=== PATIENT | female | born 1980 | race Caucasian/White ===

== ENCOUNTER 2020-10-05 10:23 | Outpatient (CLI) | payer MEDICARE, SELFPAY ==
--- NOTE | 2020-10-05 10:56 | XRR_ITS ---
PROCEDURE INFORMATION: Exam: XR Right Hand Exam date and time: 10/05/2020 10:57 AM Age: 40 years old Clinical indication: Right; Patient HX: C/O bilat joint /hand pain x 6 months; Additional info: Inflammatory arthritis TECHNIQUE: Imaging protocol: XR Right hand. Views: 3 or more views. COMPARISON: No relevant prior studies available. FINDINGS: Bones/joints: Negative for acute bony abnormality. Negative for radiographic evidence of inflammatory bone disease Soft tissues: Normal. XR/XR hand RT min 3V* [id number] IMPRESSION: No acute bone abnormality.
--- NOTE | 2020-10-05 10:56 | XRR_ITS ---
PROCEDURE INFORMATION: Exam: XR Left Hand Exam date and time: 10/05/2020 10:57 AM Age: 40 years old Clinical indication: Prior surgery; Surgery date: 6+ months; Surgery type: HX of left hand carpal tunnel surgery; Patient HX: C/O bilat joint pain/hand pain x 6 months; Additional info: Inflammatory arthritis TECHNIQUE: Imaging protocol: XR Left hand. Views: 3 or more views. COMPARISON: No relevant prior studies available. FINDINGS: Bones/joints: Negative for acute bony abnormality Soft tissues: Normal. XR/XR hand LT min 3V* [id number] IMPRESSION: No acute findings.
== END 2020-10-05 10:24 | disposition home or self-care (01) ==
LOC: RADWPI 10:31
PROVIDERS: PCP Family Medicine; Visit Provider Family Medicine
DX: M19.90 Unspecified osteoarthritis, unspecified site (principal); M79.642 Pain in left hand; M79.641 Pain in right hand
CPT/HCPCS: 73130

== ENCOUNTER → 2020-11-15 08:45 | Outpatient (BNVA) | payer MEDICARE, SELFPAY | PROVIDERS: PCP Family Medicine; Visit Provider Internal Medicine | DX: M79.641 Pain in right hand (principal); M25.50 Pain in unspecified joint; Z11.59 Encounter for screening for other viral diseases; R53.83 Other fatigue; E11.9 Type 2 diabetes mellitus without complications; F17.210 Nicotine dependence, cigarettes, uncomplicated; Z51.81 Encounter for therapeutic drug level monitoring; M79.643 Pain in unspecified hand; D86.9 Sarcoidosis, unspecified; M10.9 Gout, unspecified; Z72.89 Other problems related to lifestyle | CPT/HCPCS: 36415; 82306; 82310; 82533; 82550; 82728; 82784; 83516; 83540; 83735; 83970; 84100; 84550; 86140; 86704; 86803; 86812; 87340; 99204 ==

== ENCOUNTER 2020-11-15 10:12 | Outpatient (CLI) | payer MEDICARE, SELFPAY ==
[2020-11-15 11:35] LABS: Calcium 9.5 mg/dL (8.5-10.5)
[2020-11-15 11:56] LABS: Parathyroid Hormone 31.3 pg/mL (15-65)
[2020-11-15 12:27] LABS: 25 Hydroxy Vitamin D 24 ng/mL (30-100); C Reactive Protein 8.5 mg/L (0.0-4.9); Creatine Phosphokinase 39 U/L (26-192); Ferritin 89 ng/mL (15-150); Iron 81 ug/dL (37-145); Magnesium 1.8 mg/dL (1.7-2.3); Phosphorus 3.6 mg/dL (2.5-4.5); Uric Acid 4.4 mg/dL (2.4-5.7)
[2020-11-15 17:01] LABS: Hepatitis B Core AB, Total Non-Reactive (Nonreactive); Hepatitis B Surface Antigen Non-Reactive (Nonreactive); Hepatitis C Virus Antibody Non-Reactive (Nonreactive)
[2020-11-18 16:49] LABS: Gliadin Ab.IgA 4 U (<20); Gliadin Ab.IgG 2 U (<20)
[2020-11-18 23:54] LABS: Tissue Transglutaminase IgA Ab <1 U/mL; Tissue transglutaminase Ab.IgG 2 U/mL
[2020-11-20 00:54] LABS: Immunoglobulin A 106 mg/dL (47-310)
[2020-11-22 20:49] LABS: HLA-B27 POSITIVE (NEGATIVE)
== END 2020-11-15 10:13 | disposition home or self-care (01) ==
LOC: LAB 10:15
PROVIDERS: PCP Family Medicine; Visit Provider Internal Medicine
DX: Z51.81 Encounter for therapeutic drug level monitoring (principal); M79.643 Pain in unspecified hand; D86.9 Sarcoidosis, unspecified; M10.9 Gout, unspecified
CPT/HCPCS: 36415; 82306; 82310; 82533; 82550; 82728; 82784; 83516; 83540; 83735; 83970; 84100; 84550; 86140; 86704; 86803; 86812; 87340

== ENCOUNTER 2020-11-26 08:20 | Outpatient (CLI) | payer MEDICARE, SELFPAY ==
--- NOTE | 2020-11-26 08:31 | XR_ITS ---
WS: [id number] Exam: XR sacroiliac jts m 3V [id number] Date/Time of Exam: 11/26/2020 9:12 AM Reason For Exam: L40.9 - Psoriasis, unspecified Degenerative change and bony sclerosis of both SI joints noted. No fracture or dislocation. The SI j oints remain open. There appear to be large subcortical cysts in the bilateral sacral ala. Decompres laura laminectomy and interbody fusion at L5-S1. XR/XR sacroiliac jts m 3V [id number] IMPRESSION: 1. Degenerative change and bony sclerosis of both SI joints. Prominent subcorti yann cysts are noted in the bilateral sacral ala. The appearance is nonspecific but this could be seen with psoriatic arthritis. 2. No fracture. Decompression laminectomy and interbody fusion at L5-S1.
[2020-11-26 09:22] LABS: C Reactive Protein 8.4 mg/L (0.0-4.9)
[2020-11-26 11:01] LABS: Erythrocyte Sedimentation Rate 13 mm/hr (0-15)
[2020-11-26 13:20] LABS: Cortisol Random 11.97 ug/dL (2.47-19.5)
[2020-11-29 11:57] LABS: Cyclic Citrullinated Peptide <16 UNITS
[2020-11-29 14:33] LABS: COMPLEMENT COMPONENT C3C 152 mg/dL (83-193); COMPLEMENT COMPONENT C4C 34 mg/dL (15-57)
[2020-11-29 15:03] LABS: COMPLEMENT, TOTAL (CH50) >60 U/mL (31-60)
[2020-11-30 13:58] LABS: CENTROMERE B ANTIBODY <1.0 NEG AI (<1.0 NEG); JO-1 ANTIBODY <1.0 NEG AI (<1.0 NEG); RNP ANTIBODY <1.0 NEG AI (<1.0 NEG); SCL-70 ANTIBODY <1.0 NEG AI (<1.0 NEG); SJOGREN'S ANTIBODY (SS-A) <1.0 NEG AI (<1.0 NEG); SM ANTIBODY <1.0 NEG AI (<1.0 NEG); SS-B <1.0 NEG AI (<1.0 NEG)
[2020-11-30 14:28] LABS: ANA SCREEN, IFA NEGATIVE (NEGATIVE); THYROID PEROXIDASE ANTIBODIES 1 IU/mL (<9)
[2020-12-02 01:14] LABS: DNA AB (DS) CRITHIDIA,IFA NEGATIVE (NEGATIVE)
[2020-12-03 05:18] LABS: Adrenocorticotropic Hormone 15 pg/mL (6-50)
== END 2020-11-26 08:21 | disposition home or self-care (01) ==
PROVIDERS: PCP Family Medicine; Visit Provider Internal Medicine
DX: L40.9 Psoriasis, unspecified (principal); R79.82 Elevated C-reactive protein (CRP); D86.9 Sarcoidosis, unspecified
CPT/HCPCS: 72202; 82024; 82533; 85651; 86140

== ENCOUNTER → 2020-12-31 09:32 | Outpatient (BNVA) | payer MEDICARE, SELFPAY | PROVIDERS: PCP Family Medicine; Visit Provider Internal Medicine | DX: M25.50 Pain in unspecified joint; Z11.1 Encounter for screening for respiratory tuberculosis; R79.82 Elevated C-reactive protein (CRP); E11.9 Type 2 diabetes mellitus without complications; Z79.84 Long term (current) use of oral hypoglycemic drugs; F17.210 Nicotine dependence, cigarettes, uncomplicated; Z15.89 Genetic susceptibility to other disease | CPT/HCPCS: 99214 ==

== ENCOUNTER 2021-01-03 09:58 | Outpatient (CLI) | payer MEDICARE, SELFPAY ==
--- NOTE | 2021-01-03 10:08 | XRR_ITS ---
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 Views: 2 or 3 views. COMPARISON: MRI Cervical Spine w/o* [id number] 05/28/2014 10:01 AM FINDINGS: Bones/joints: Chronic degenerative disease with disc space narrowing and osteophyte formation especially from C5 through C7. No acute abnormality is seen. There is no malalignment. Soft tissues: Unremarkable. XR/XR cervical spine fl/ex [id number] IMPRESSION: Chronic degenerative disease. No acute abnormality or malalignment.
--- NOTE | 2021-01-03 10:08 | XRR_ITS ---
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 Views: 3 views. COMPARISON: MRI Thoracic Spine w/o* [id number] 05/28/2014 10:27 AM FINDINGS: Bones/joints: Normal. No acute fracture. Normal alignment. Soft tissues: Unremarkable. XR/XR thoracic spine 3V* [id number] IMPRESSION: No acute findings.
--- NOTE | 2021-01-03 10:08 | XRR_ITS ---
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 Views: 2 or 3 views. COMPARISON: MRI Lumbar Spine w/o [id number] 08/23/2016 7:27 AM FINDINGS: Bones/joints: The patient has undergone posterior fusion at L5-S1 with posterior pedicle screws and rods. There is grade 1-2 spondylolisthesis at L5-S1. There has been no significant change since previous study. There is old mild compression fracture of the L1 vertebral body. No acute abnormalities are seen. Soft tissues: Unremarkable. XR/XR lumbar spine 2-3V* [id number] IMPRESSION: 1. Stable appearance of the posterior fusion surgery and alignment at L5-S1. 2. No acute abnormality is seen.
[2021-01-05 12:53] LABS: Quantiferon Mitogen 8.13 IU/mL; Quantiferon Nil 0.02 IU/mL; Quantiferon TB Gold NEGATIVE (NEGATIVE)
== END 2021-01-03 09:59 | disposition home or self-care (01) ==
LOC: RAD 10:02
PROVIDERS: PCP Family Medicine; Visit Provider Internal Medicine
DX: Z15.89 Genetic susceptibility to other disease (principal); M32.9 Systemic lupus erythematosus, unspecified; Z11.1 Encounter for screening for respiratory tuberculosis
CPT/HCPCS: 36415; 72040; 72072; 72100; 86480

== ENCOUNTER 2021-03-09 07:51 | Outpatient (CLI) | payer MEDICARE, SELFPAY ==
--- NOTE | 2021-03-09 08:00 | MM_ITS ---
WS: [id number] BILATERAL DIGITAL SCREENING MAMMOGRAPHY WITH CAD CLINICAL INFORMATION: SCREENING HISTORY: Screening mammogram. No current complaints. COMPARISON: None. TECHNIQUE: Bilateral CC and MLO views. FINDINGS: Scattered fibroglandular densities bilaterally. Dense subareolar breast tissue bilaterally. No suspic ious focal mass, asymmetry, calcifications, or architectural distortion. No evidence of malignancy. B enign punctate calcifications. MM/[place] [id number] IMPRESSION: BI-RADS: 2-Benign FOLLOW UP: 1 Year Follow-up Recommend return to annual screening mammography.
== END 2021-03-09 07:52 | disposition home or self-care (01) ==
PROVIDERS: PCP Family Medicine; Visit Provider Nurse Practitioner Family
DX: Z12.31 Encounter for screening mammogram for malignant neoplasm of breast (principal)
CPT/HCPCS: 77067

== ENCOUNTER 2021-03-09 07:55 | Outpatient (CLI) | payer MEDICARE, SELFPAY ==
[2021-03-09 08:50] LABS: Basophils % 0.3 %; Eosinophils # 0.3 10^3/uL (0.0-0.8); Eosinophils % 2.6 %; Hematocrit 42.2 % (37.0-47.0); Hemoglobin 13.4 g/dL (11.5-15.3); Lymphocytes # 2.7 10^3/uL (0.8-4.8); Lymphocytes % 25.4 %; Mean Corpuscular HGB Conc 31.8 g/dL (30.0-36.0); Mean Corpuscular Hemoglobin 29.6 pg (28.0-34.0); Mean Corpuscular Volume 93.2 fL (81-99); Mean Platelet Volume 10.8 fL (7.4-10.4); Monocytes # 0.4 10^3/uL (0.2-0.9); Neutrophils # 7.12 10^3/uL (1.8-7.7); Neutrophils % 67.2 %; Nucleated Red Blood Cells % 0 %; Platelet Count 290 10^3/cmm (130-400); Red Blood Count 4.53 10^6/uL (4.1-5.3); Red Cell Distribution Width 14.5 % (12.1-15.1); White Blood Count 10.6 10^3/uL (4.0-10.0)
[2021-03-09 09:13] LABS: Alanine Aminotransferase 60 U/L (0-33); Albumin Level 4.3 g/dL (3.5-5.2); Alkaline Phosphatase 72 IU/L (35-105); Anion Gap 13.2 (5-19); Aspartate Amino Transferase 28 U/L (0-32); Blood Urea Nitrogen 11 mg/dL (6-20); C Reactive Protein 7.3 mg/L (0.0-4.9); Calcium 8.7 mg/dL (8.5-10.5); Carbon Dioxide 26 mmol/L (22-29); Chloride 100 mmol/L (98-107); Globulin 2.3 g/dL (1.3-4.6); Glomerular Filtration Rate 109.1 mL/min (90-130); Glucose 159 mg/dL (65-115); Osmolality Calculated 283 mOsm/kg (285-295); Potassium 4.2 mmol/L (3.5-5.1); Sodium 135 mmol/L (136-145); Total Bilirubin 0.3 mg/dL (0.15-1.2); Total Protein 6.6 g/dL (6.6-8.7)
[2021-03-09 09:51] LABS: Erythrocyte Sedimentation Rate 10 mm/hr (0-15)
[2021-03-09 11:32] LABS: Vitamin B12 1177 pg/mL (232-1245)
== END 2021-03-09 07:56 | disposition home or self-care (01) ==
PROVIDERS: PCP Family Medicine; Visit Provider Internal Medicine
DX: M25.50 Pain in unspecified joint (principal); R79.82 Elevated C-reactive protein (CRP); Z15.89 Genetic susceptibility to other disease; Z79.899 Other long term (current) drug therapy
CPT/HCPCS: 36415; 80053; 82607; 85025; 85651; 86140

== ENCOUNTER → 2021-03-15 12:59 | Outpatient (BNVA) | payer MEDICARE, SELFPAY | PROVIDERS: PCP Family Medicine; Visit Provider Internal Medicine | DX: Z15.89 Genetic susceptibility to other disease (principal); R79.82 Elevated C-reactive protein (CRP); M46.1 Sacroiliitis, not elsewhere classified; F17.210 Nicotine dependence, cigarettes, uncomplicated; Z82.61 Family history of arthritis | CPT/HCPCS: 99214 ==

== ENCOUNTER → 2021-04-28 10:10 | Outpatient (BNVA) | payer MEDICARE, SELFPAY | PROVIDERS: PCP Family Medicine; Visit Provider Internal Medicine | DX: M25.50 Pain in unspecified joint (principal); R79.82 Elevated C-reactive protein (CRP); Z79.899 Other long term (current) drug therapy | CPT/HCPCS: 36415; 80053; 85025; 85651; 86140 ==

== ENCOUNTER → 2021-05-03 12:54 | Outpatient (BNVA) | payer MEDICARE, SELFPAY | PROVIDERS: PCP Family Medicine; Visit Provider Internal Medicine | DX: Z15.89 Genetic susceptibility to other disease (principal); R79.82 Elevated C-reactive protein (CRP); M46.1 Sacroiliitis, not elsewhere classified; F17.210 Nicotine dependence, cigarettes, uncomplicated | CPT/HCPCS: 99214 ==

== ENCOUNTER → 2021-05-18 08:35 | Outpatient (BNVA) | payer MEDICARE, SELFPAY | PROVIDERS: PCP Family Medicine; Visit Provider Internal Medicine Rheumatology | DX: Z79.899 Other long term (current) drug therapy (principal); E55.9 Vitamin D deficiency, unspecified | CPT/HCPCS: 80053; 85025 ==

== ENCOUNTER → 2021-06-30 13:11 | Outpatient (BNVA) | payer MEDICARE, SELFPAY | PROVIDERS: PCP Family Medicine; Visit Provider Internal Medicine | DX: E55.9 Vitamin D deficiency, unspecified (principal); M25.50 Pain in unspecified joint; R79.82 Elevated C-reactive protein (CRP); Z15.89 Genetic susceptibility to other disease; Z79.899 Other long term (current) drug therapy | CPT/HCPCS: 36415; 80053; 85025; 85651; 86140 ==

== ENCOUNTER → 2021-08-11 10:21 | Outpatient (BNVA) | payer MEDICARE, SELFPAY | PROVIDERS: PCP Family Medicine; Visit Provider Internal Medicine | DX: M46.1 Sacroiliitis, not elsewhere classified (principal); Z15.89 Genetic susceptibility to other disease; R79.82 Elevated C-reactive protein (CRP); M96.1 Postlaminectomy syndrome, not elsewhere classified; F17.210 Nicotine dependence, cigarettes, uncomplicated | CPT/HCPCS: 99214 ==

== ENCOUNTER → 2021-08-22 08:31 | Outpatient (BNVA) | payer MEDICARE, SELFPAY | PROVIDERS: PCP Family Medicine; Referring Provider Internal Medicine; Visit Provider Anesthesiology Pain Medicine | DX: G89.29 Other chronic pain (principal); M54.50 Low back pain, unspecified; M96.1 Postlaminectomy syndrome, not elsewhere classified; M46.1 Sacroiliitis, not elsewhere classified; F17.210 Nicotine dependence, cigarettes, uncomplicated; Z15.89 Genetic susceptibility to other disease; Z79.891 Long term (current) use of opiate analgesic | CPT/HCPCS: 99204 ==

== ENCOUNTER → 2021-09-06 13:52 | Outpatient (BNVA) | payer MEDICARE, SELFPAY | PROVIDERS: PCP Family Medicine; Visit Provider Anesthesiology Pain Medicine | DX: M53.3 Sacrococcygeal disorders, not elsewhere classified (principal); M54.9 Dorsalgia, unspecified; Z91.041 Radiographic dye allergy status | CPT/HCPCS: 77002; G0260; J1040; J1200; J3490 ==

== ENCOUNTER 2021-09-09 09:01 | Outpatient (CLI) | payer MEDICARE, SELFPAY ==
[2021-09-09 09:32] LABS: Basophils % 0.3 %; Eosinophils # 0.1 10^3/uL (0.0-0.8); Eosinophils % 1.1 %; Lymphocytes # 3.4 10^3/uL (0.8-4.8); Lymphocytes % 28.4 %; Mean Corpuscular HGB Conc 32.6 g/dL (30.0-36.0); Mean Corpuscular Hemoglobin 30.6 pg (28.0-34.0); Mean Corpuscular Volume 94.1 fl (81-99); Mean Platelet Volume 10.1 fL (7.4-10.4); Monocytes # 0.7 10^3/uL (0.2-0.9); Monocytes % 5.9 %; Neutrophils # 7.69 10^3/uL (1.8-7.7); Neutrophils % 63.7 %; Nucleated Red Blood Cells % 0 %; Platelet Count 350 10^3/cmm (130-400); Red Blood Count 4.57 10^6/uL (4.1-5.3); Red Cell Distribution Width 14.6 % (12.1-15.1); White Blood Count 12.1 10^3/uL (4.0-10.0)
[2021-09-09 09:58] LABS: Alanine Aminotransferase 24 U/L (0-33); Albumin Level 4.4 g/dL (3.5-5.2); Alkaline Phosphatase 75 IU/L (35-105); Anion Gap 17.2 (5-19); Aspartate Amino Transferase 14 U/L (0-32); Blood Urea Nitrogen 8 mg/dL (6-20); C Reactive Protein 4.3 mg/L (0.0-4.9); Calcium 9.2 mg/dL (8.5-10.5); Carbon Dioxide 25 mmol/L (22-29); Chloride 99 mmol/L (98-107); Globulin 2.8 g/dL (1.3-4.6); Glomerular Filtration Rate 109.1 mL/min (90-130); Glucose 116 mg/dL (65-115); Osmolality Calculated 283 mOsm/kg (285-295); Potassium 4.2 mmol/L (3.5-5.1); Sodium 137 mmol/L (136-145); Total Bilirubin 0.2 mg/dL (0.15-1.2); Total Protein 7.2 g/dL (6.6-8.7)
[2021-09-12 11:29] LABS: Erythrocyte Sedimentation Rate 2 mm/hr (0-15)
== END 2021-09-09 09:02 | disposition home or self-care (01) ==
PROVIDERS: PCP Family Medicine; Visit Provider Internal Medicine
DX: M25.50 Pain in unspecified joint (principal); M46.1 Sacroiliitis, not elsewhere classified; Z15.89 Genetic susceptibility to other disease; Z79.899 Other long term (current) drug therapy
CPT/HCPCS: 36415; 80053; 85025; 85651; 86140

== ENCOUNTER → 2021-10-03 09:47 | Outpatient (BNVA) | payer MEDICARE, SELFPAY | PROVIDERS: PCP Family Medicine; Visit Provider Anesthesiology Pain Medicine | DX: G89.29 Other chronic pain (principal); M54.16 Radiculopathy, lumbar region; M43.16 Spondylolisthesis, lumbar region; M43.26 Fusion of spine, lumbar region; M96.1 Postlaminectomy syndrome, not elsewhere classified; M46.1 Sacroiliitis, not elsewhere classified; Z15.89 Genetic susceptibility to other disease; M79.605 Pain in left leg; F17.200 Nicotine dependence, unspecified, uncomplicated; Z79.891 Long term (current) use of opiate analgesic | CPT/HCPCS: 99214 ==

== ENCOUNTER → 2021-10-31 09:36 | Outpatient (BNVA) | payer MEDICARE, SELFPAY | PROVIDERS: PCP Family Medicine; Visit Provider Anesthesiology Pain Medicine | DX: G89.29 Other chronic pain (principal); M54.16 Radiculopathy, lumbar region; M43.16 Spondylolisthesis, lumbar region; M46.1 Sacroiliitis, not elsewhere classified; M96.1 Postlaminectomy syndrome, not elsewhere classified; Z15.89 Genetic susceptibility to other disease; F17.210 Nicotine dependence, cigarettes, uncomplicated; Z79.891 Long term (current) use of opiate analgesic | CPT/HCPCS: 99213 ==

== ENCOUNTER → 2021-11-07 13:52 | Outpatient (BNVA) | payer MEDICARE, SELFPAY | PROVIDERS: PCP Family Medicine; Visit Provider Internal Medicine | DX: M46.1 Sacroiliitis, not elsewhere classified (principal); Z15.89 Genetic susceptibility to other disease; M25.50 Pain in unspecified joint; Z79.899 Other long term (current) drug therapy; F17.210 Nicotine dependence, cigarettes, uncomplicated | CPT/HCPCS: 99214 ==

== ENCOUNTER 2022-01-27 12:34 | Outpatient (CLI) | payer MEDICARE, SELFPAY ==
[2022-01-27 12:58] LABS: Basophils % 0.4 %; Eosinophils # 0.2 10^3/uL (0.0-0.8); Eosinophils % 1.9 %; Hematocrit 41.9 % (37.0-47.0); Hemoglobin 13.7 g/dL (11.5-15.3); Lymphocytes # 3.5 10^3/uL (0.8-4.8); Lymphocytes % 32.1 %; Mean Corpuscular HGB Conc 32.7 g/dL (30.0-36.0); Mean Corpuscular Hemoglobin 31.4 pg (28.0-34.0); Mean Corpuscular Volume 96.1 fl (81-99); Mean Platelet Volume 10.6 fL (7.4-10.4); Monocytes # 0.4 10^3/uL (0.2-0.9); Monocytes % 3.6 %; Neutrophils # 6.63 10^3/uL (1.8-7.7); Neutrophils % 61.4 %; Nucleated Red Blood Cells % 0 %; Platelet Count 324 10^3/cmm (130-400); Red Blood Count 4.36 10^6/uL (4.1-5.3); Red Cell Distribution Width 14.6 % (12.1-15.1); White Blood Count 10.8 10^3/uL (4.0-10.0)
[2022-01-27 13:02] LABS: Erythrocyte Sedimentation Rate 15 mm/hr (0-15)
[2022-01-27 13:17] LABS: Alanine Aminotransferase 69 U/L (0-33); Albumin Level 4.9 g/dL (3.5-5.2); Alkaline Phosphatase 97 IU/L (35-105); Anion Gap 18.1 (5-19); Blood Urea Nitrogen 8 mg/dL (6-20); C Reactive Protein 11.4 mg/L (0.0-4.9); Calcium 9.8 mg/dL (8.5-10.5); Carbon Dioxide 25 mmol/L (22-29); Chloride 102 mmol/L (98-107); Globulin 2.4 g/dL (1.3-4.6); Glomerular Filtration Rate 78.3 mL/min (90-130); Glucose 109 mg/dL (65-115); Osmolality Calculated 291 mOsm/kg (285-295); Potassium 4.1 mmol/L (3.5-5.1); Sodium 141 mmol/L (136-145); Total Bilirubin 0.3 mg/dL (0.15-1.2); Total Protein 7.3 g/dL (6.6-8.7)
[2022-01-27 13:26] LABS: Aspartate Amino Transferase 5 U/L (0-32)
== END 2022-01-27 12:35 | disposition home or self-care (01) ==
PROVIDERS: PCP Family Medicine; Visit Provider Internal Medicine
DX: M25.50 Pain in unspecified joint (principal); M43.10 Spondylolisthesis, site unspecified; R79.82 Elevated C-reactive protein (CRP); Z15.89 Genetic susceptibility to other disease; Z79.899 Other long term (current) drug therapy
CPT/HCPCS: 80053; 85025; 85651; 86140

== ENCOUNTER → 2022-01-30 08:38 | Outpatient (BNVA) | payer MEDICARE, SELFPAY | PROVIDERS: PCP Family Medicine; Visit Provider Anesthesiology Pain Medicine | DX: G89.29 Other chronic pain (principal); M54.16 Radiculopathy, lumbar region; M96.1 Postlaminectomy syndrome, not elsewhere classified; M46.1 Sacroiliitis, not elsewhere classified; M43.10 Spondylolisthesis, site unspecified; Z15.89 Genetic susceptibility to other disease; F17.210 Nicotine dependence, cigarettes, uncomplicated; Z79.891 Long term (current) use of opiate analgesic | CPT/HCPCS: 99213 ==

== ENCOUNTER 2022-02-09 12:28 | Outpatient (CLI) | payer MEDICARE, SELFPAY ==
--- NOTE | 2022-02-09 12:33 | XR_ITS ---
WS: [id number] DEXA (DUAL ENERGY X-RAY ABSORPTIOMETRY) Bone mineral density was performed using a [employer] machine. HISTORY: POSTMENOPAUSAL COMPARISON: None available. Lumbar spine BMD (L1-L4): 1.157 g/cm2 T score: -0.2 Z score: -1.4 Total hip BMD: Left: 1.213 g/cm2. T score: 1.6 Z score: 1.1 Right: 1.129 g/cm2. T score: 1.0 Z score: 0.4 10 year probability of a major osteoporotic fracture is 3%. XR/XR DEXA axial skeleton* [id number] IMPRESSION: NORMAL BONE MINERAL DENSITY based upon the WHO classification for females.
== END 2022-02-09 12:29 | disposition home or self-care (01) ==
LOC: RAD 12:29
PROVIDERS: PCP Family Medicine; Visit Provider Nurse Practitioner Family
DX: Z78.0 Asymptomatic menopausal state (principal)
CPT/HCPCS: 77080

== ENCOUNTER → 2022-02-23 11:09 | Outpatient (BNVA) | payer MEDICARE, SELFPAY | PROVIDERS: PCP Family Medicine; Visit Provider Internal Medicine | DX: M46.1 Sacroiliitis, not elsewhere classified (principal); Z15.89 Genetic susceptibility to other disease; R79.82 Elevated C-reactive protein (CRP); R74.01 Elevation of levels of liver transaminase levels; Z79.899 Other long term (current) drug therapy; F17.210 Nicotine dependence, cigarettes, uncomplicated | CPT/HCPCS: 99214 ==

== ENCOUNTER 2022-02-28 07:57 | Outpatient (CLI) | payer MEDICARE, SELFPAY ==
[2022-02-28 08:45] LABS: Alanine Aminotransferase 47 U/L (0-33); Albumin Level 4.4 g/dL (3.5-5.2); Alkaline Phosphatase 87 IU/L (35-105); Anion Gap 14.5 (5-19); Aspartate Amino Transferase 28 U/L (0-32); Blood Urea Nitrogen 11 mg/dL (6-20); Calcium 8.5 mg/dL (8.5-10.5); Carbon Dioxide 24 mmol/L (22-29); Chloride 103 mmol/L (98-107); Chol HDL Ratio 3.94 mg/dL (0.0-4.40); Cholesterol 122 mg/dL (0-200); Globulin 2.4 g/dL (1.3-4.6); Glomerular Filtration Rate 77.9 mL/min (90-130); Glucose 150 mg/dL (65-115); HDL Cholesterol 31 mg/dL (60-100); LDL Cholesterol Calculated 56 mg/dL (50-129); LDL HDL Ratio 1.81 RATIO (0.00-3.22); Osmolality Calculated 286 mOsm/kg (285-295); Potassium 4.5 mmol/L (3.5-5.1); Sodium 137 mmol/L (136-145); Thyroid Stimulating Hormone 2.31 uIU/mL (0.27-4.20); Total Bilirubin 0.3 mg/dL (0.15-1.2); Total Protein 6.8 g/dL (6.6-8.7); Triglycerides 176 mg/dL (0-150)
== END 2022-02-28 07:58 | disposition home or self-care (01) ==
PROVIDERS: PCP Family Medicine; Visit Provider Internal Medicine
DX: R74.01 Elevation of levels of liver transaminase levels (principal)
CPT/HCPCS: 36415; 80053; 80061; 84443

== ENCOUNTER 2022-03-24 08:57 | Outpatient (CLI) | payer MEDICARE, SELFPAY ==
--- NOTE | 2022-03-24 09:03 | MM_ITS ---
WS: [id number] VIEWS: MLO and CC views both breasts. 3D digital tomosynthesis is also included in this exam. Comparison made with prior exam of 03/09/2021. Findings: There was no sign of mass, architectural distortion or suspicious calcification in either breast. Sc attered fibroglandular densities MM/[place] [id number] Impression: BI-RADS: 2-Benign FOLLOW-UP: 1 Year Follow-up This mammogram was also analyzed by the Computer Aided Detection System [employer].
== END 2022-03-24 08:58 | disposition home or self-care (01) ==
LOC: RAD 08:58
PROVIDERS: PCP Family Medicine; Visit Provider Nurse Practitioner Family
DX: Z12.31 Encounter for screening mammogram for malignant neoplasm of breast (principal)
CPT/HCPCS: 77063; 77067

== ENCOUNTER → 2022-03-29 10:36 | Outpatient (BNVA) | payer MEDICARE, SELFPAY | PROVIDERS: PCP Family Medicine; Referring Provider Nurse Practitioner Family; Visit Provider Podiatrist Foot & Ankle Surgery | DX: M79.671 Pain in right foot (principal); M79.672 Pain in left foot; Z15.89 Genetic susceptibility to other disease; E11.42 Type 2 diabetes mellitus with diabetic polyneuropathy | CPT/HCPCS: 99203; 99204 ==

== ENCOUNTER → 2022-05-04 13:40 | Outpatient (BNVA) | payer MEDICARE, SELFPAY | PROVIDERS: PCP Family Medicine; Visit Provider Podiatrist Foot & Ankle Surgery | DX: L85.1 Acquired keratosis [keratoderma] palmaris et plantaris (principal); M79.671 Pain in right foot; M79.672 Pain in left foot; Z15.89 Genetic susceptibility to other disease; E11.42 Type 2 diabetes mellitus with diabetic polyneuropathy; Z79.84 Long term (current) use of oral hypoglycemic drugs | CPT/HCPCS: 17110 ==

== ENCOUNTER 2022-05-05 09:11 | Outpatient (CLI) | payer MEDICARE, SELFPAY ==
[2022-05-05 09:37] LABS: Basophils % 0.3 %; Eosinophils # 0.2 10^3/uL (0.0-0.8); Eosinophils % 1.6 %; Hematocrit 41.9 % (37.0-47.0); Lymphocytes # 2.6 10^3/uL (0.8-4.8); Lymphocytes % 25.4 %; Mean Corpuscular HGB Conc 33.4 g/dL (30.0-36.0); Mean Corpuscular Hemoglobin 31.4 pg (28.0-34.0); Mean Corpuscular Volume 93.9 fl (81-99); Mean Platelet Volume 10.9 fL (7.4-10.4); Monocytes # 0.5 10^3/uL (0.2-0.9); Monocytes % 4.6 %; Neutrophils # 7.01 10^3/uL (1.8-7.7); Neutrophils % 67.8 %; Nucleated Red Blood Cells % 0 %; Platelet Count 285 10^3/cmm (130-400); Red Blood Count 4.46 10^6/uL (4.1-5.3); Red Cell Distribution Width 14.6 % (12.1-15.1); White Blood Count 10.4 10^3/uL (4.0-10.0)
[2022-05-05 09:41] LABS: Erythrocyte Sedimentation Rate 4 mm/hr (0-15)
[2022-05-05 09:55] LABS: Alanine Aminotransferase 38 U/L (0-33); Albumin Level 4.6 g/dL (3.5-5.2); Alkaline Phosphatase 77 IU/L (35-105); Anion Gap 14.3 (5-19); Aspartate Amino Transferase 23 U/L (0-32); Blood Urea Nitrogen 7 mg/dL (6-20); C Reactive Protein 5.3 mg/L (0.0-4.9); Calcium 9.4 mg/dL (8.5-10.5); Carbon Dioxide 25 mmol/L (22-29); Chloride 102 mmol/L (98-107); Globulin 2.4 g/dL (1.3-4.6); Glomerular Filtration Rate 90.9 mL/min (90-130); Glucose 135 mg/dL (65-115); Osmolality Calculated 284 mOsm/kg (285-295); Potassium 4.3 mmol/L (3.5-5.1); Sodium 137 mmol/L (136-145); Total Bilirubin 0.3 mg/dL (0.15-1.2)
== END 2022-05-05 09:12 | disposition home or self-care (01) ==
LOC: LAB 09:14
PROVIDERS: PCP Family Medicine; Visit Provider Internal Medicine
DX: M46.1 Sacroiliitis, not elsewhere classified (principal); Z15.89 Genetic susceptibility to other disease; M43.10 Spondylolisthesis, site unspecified; Z79.899 Other long term (current) drug therapy
CPT/HCPCS: 80053; 85025; 85651; 86140

== ENCOUNTER → 2022-05-09 09:21 | Outpatient (BNVA) | payer MEDICARE, SELFPAY | PROVIDERS: PCP Family Medicine; Visit Provider Anesthesiology Pain Medicine | DX: G89.29 Other chronic pain (principal); M96.1 Postlaminectomy syndrome, not elsewhere classified; M46.1 Sacroiliitis, not elsewhere classified; M54.16 Radiculopathy, lumbar region; M43.17 Spondylolisthesis, lumbosacral region; F17.210 Nicotine dependence, cigarettes, uncomplicated; Z15.89 Genetic susceptibility to other disease; Z79.891 Long term (current) use of opiate analgesic | CPT/HCPCS: 99214 ==

== ENCOUNTER → 2022-05-16 11:33 | Outpatient (BNVA) | payer MEDICARE, SELFPAY | PROVIDERS: PCP Family Medicine; Visit Provider Internal Medicine | DX: M46.1 Sacroiliitis, not elsewhere classified (principal); M54.16 Radiculopathy, lumbar region; R74.01 Elevation of levels of liver transaminase levels | CPT/HCPCS: 99214 ==

== ENCOUNTER → 2022-05-30 10:10 | Outpatient (BNVA) | payer MEDICARE, SELFPAY | PROVIDERS: PCP Family Medicine; Visit Provider Podiatrist Foot & Ankle Surgery | DX: M79.671 Pain in right foot (principal); M79.672 Pain in left foot; Z15.89 Genetic susceptibility to other disease; E11.42 Type 2 diabetes mellitus with diabetic polyneuropathy; L85.1 Acquired keratosis [keratoderma] palmaris et plantaris; R23.4 Changes in skin texture | CPT/HCPCS: 17110; 99213 ==

== ENCOUNTER → 2022-06-27 10:17 | Outpatient (BNVA) | payer MEDICARE, SELFPAY | PROVIDERS: PCP Family Medicine; Visit Provider Podiatrist Foot & Ankle Surgery | DX: L84 Corns and callosities (principal); Z15.89 Genetic susceptibility to other disease; E11.42 Type 2 diabetes mellitus with diabetic polyneuropathy; L85.1 Acquired keratosis [keratoderma] palmaris et plantaris; R23.4 Changes in skin texture; Z79.84 Long term (current) use of oral hypoglycemic drugs | CPT/HCPCS: 17110 ==

== ENCOUNTER → 2022-08-14 10:45 | Outpatient (BNVA) | payer MEDICARE, SELFPAY | PROVIDERS: PCP Family Medicine; Referring Provider Family Medicine; Visit Provider Specialist | DX: G56.02 Carpal tunnel syndrome, left upper limb (principal) | CPT/HCPCS: 95908; 95909 ==

== ENCOUNTER → 2022-08-14 14:05 | Outpatient (BNVA) | payer MEDICARE, SELFPAY | PROVIDERS: PCP Family Medicine; Visit Provider Podiatrist Foot & Ankle Surgery | DX: B07.0 Plantar wart (principal) | CPT/HCPCS: 17110 ==

== ENCOUNTER → 2022-08-21 08:01 | Outpatient (BNVA) | payer MEDICARE, SELFPAY | PROVIDERS: PCP Family Medicine; Referring Provider Family Medicine; Visit Provider Specialist | DX: G56.02 Carpal tunnel syndrome, left upper limb (principal) | CPT/HCPCS: 73110; 99204 ==

== ENCOUNTER → 2022-08-29 10:40 | Outpatient (BNVA) | payer MEDICARE, SELFPAY | PROVIDERS: PCP Family Medicine; Visit Provider Internal Medicine | DX: Z15.89 Genetic susceptibility to other disease (principal); M79.643 Pain in unspecified hand; R74.01 Elevation of levels of liver transaminase levels; R79.82 Elevated C-reactive protein (CRP); M96.1 Postlaminectomy syndrome, not elsewhere classified; M25.529 Pain in unspecified elbow | CPT/HCPCS: 36415; 80053; 85025; 85651; 86140; 99214 ==

== ENCOUNTER → 2022-09-25 07:56 | Outpatient (BNVA) | payer MEDICARE, SELFPAY | PROVIDERS: PCP Family Medicine; Visit Provider Specialist | DX: G56.02 Carpal tunnel syndrome, left upper limb (principal) | CPT/HCPCS: 99214 ==

== ENCOUNTER → 2022-10-09 15:16 | Outpatient (BNVA) | payer MEDICARE, SELFPAY | PROVIDERS: PCP Family Medicine; Visit Provider Podiatrist Foot & Ankle Surgery | DX: B07.0 Plantar wart (principal) | CPT/HCPCS: 17110 ==

== ENCOUNTER 2022-10-13 05:53 | Day surgery (SDC) | payer MEDICARE, SELFPAY ==
[2022-10-13 06:16] VITALS: BP 146/99; PULSE 103; RESP 18; TEMP 36.4; O2SAT 100
--- NOTE | 2022-10-13 06:30 | ANES.PREANE2 ---
Pre-Anesthetic Assessment Height/Weight: Height 1.57 m Weight 111.13 kg Temp Pulse Resp BP Pulse Ox O2 Del Method 97.5 F L 103 H 18 146/99 100 10/13/22 06:16 10/13/22 06:16 10/13/22 06:16 10/13/22 06:16 10/13/22 06:16 10/13/22 06:16 Preop Diagnosis: Left carpal tunnel syndrome Operation Date: 10/13/22 07:00 Proposed Procedures p LEFT CARPAL TUNNEL RELEASE 23035 G56.0(Left) - Yi Montanez MD Familial anesthetic complications: None Was Beta Rosey taken within 24 hours: N/A Was Clonidine taken within 24 hours: N/A Last intake: Intake Last Liquid Date 10/12/22 Last Liquid Time 22:00 Last Solid Date 10/12/22 Last Solid Time 21:30 Social No alcohol and No tobacco Exam alert, oriented x 3, clear to auscultation bilaterally and regular rate & rhythm Airway Mallampati: Class III Dentition: full GI Gastroesophageal Reflux Disease Metabolic Diabetes Mellitus and Hyperlipidemia Anesthetic Plan ASA status: 3 Anesthesia: MAC and Regional (specify below) (donnell block) Risk of > 500 ml blood loss (7ml/kg in children): No Medications/Allergies Home Medications Medication Instructions Recorded Confirmed Last Taken Type cetirizine 10 mg tablet 10 mg PO DAILY 11/15/20 10/12/22 10/12/22 History cyclobenzaprine 10 mg tablet 10 mg PO TID 11/15/20 10/12/22 10/11/22 History metformin 500 mg tablet 500 mg PO BID 11/15/20 10/12/22 10/12/22 History omeprazole 20 mg capsule,delayed 20 mg PO BID 11/15/20 10/12/22 10/12/22 History release venlafaxine 150 mg tablet,extended 150 mg PO DAILY 11/15/20 10/12/22 10/12/22 History release 24 hr rosuvastatin 5 mg tablet (Crestor) 5 mg PO DAILY 05/03/21 10/12/22 10/12/22 History hydrocodone 5 mg-acetaminophen 325 1 tab PO BID PRN Pain 08/22/21 10/12/22 Unknown History mg tablet gabapentin 300 mg capsule See Rx Instructions PO TID pain 05/16/22 10/12/22 10/12/22 Rx #120 caps diclofenac sodium 50 mg 50 mg PO BID #60 tabs 05/25/22 10/12/22 10/07/22 Rx tablet,delayed release cholecalciferol (vitamin D3) 25 25 mcg PO DAILY #60 caps 08/07/22 10/12/22 10/12/22 Rx mcg (1,000 unit) capsule folic acid 1 mg tablet 2 mg PO DAILY #180 tabs 08/21/22 10/12/22 10/12/22 Rx methotrexate sodium 2.5 mg tablet 15 mg PO .qweek #30 tabs 09/13/22 10/12/22 10/10/22 Rx Allergies Allergy/AdvReac Type Severity Reaction Status Date / Time Sulfa (Sulfonamide Allergy Severe hives Verified 10/13/22 06:14 Antibiotics) morphine Allergy Intermediate vomiting Verified 10/13/22 06:14 tramadol Allergy Intermediate unable to Verified 10/13/22 06:14 function celecoxib [From Celebrex] Allergy Mild hives Verified 10/13/22 06:14 Iodinated Contrast Media Allergy shortness Verified 10/13/22 06:14 of breath after MRI meloxicam AdvReac ADR-Abdominal Verified 10/13/22 06:14 Pain PFSH Anesthesia Medical History Degenerative disc disease Family History Mother CAD (coronary artery disease) Hypertension Multiple sclerosis Social History Smoking and tobacco status: current every day smoker cigarettes Smoking risk assessment/counseling performed?: Yes Alcohol intake: current Alcohol intake frequency: holidays/special occasions only Alcohol type: wine Lives independently: Yes Household members: spouse and children Marital status: Number of children: 2 History of recent travel: No Female Reproductive History Date of last menstrual period: 10/29/18 Data Anesthesia Cardiac Studies: No Data to Display
[2022-10-13 06:31] LABS: Glucose Point of Care 139 mg/dL (70-110)
[2022-10-13] MEDS: acetaminophen 1,000 MG/100 ML PIGGYBACK 400 MG IV (06:38)
[2022-10-13] MEDS: sodium chloride 0.9% 1,000 ML 30 ML IV (06:45)
--- NOTE | 2022-10-13 07:07 | W.PM.OPSUD ---
Surgery/Procedure H&P Update DATE OF PROCEDURE: October 13, 2022 DATE H&P PERFORMED: 09/25/22 H&P UPDATE INFORMATION: I have reviewed H&P completed within last 30 days, I have examined patient prior to procedure, No changes to prior documentation and H&P is in [facility] EMR on date indicated PREOP DIAGNOSIS: Left carpal tunnel syndrome PLANNED PROCEDURE: Operation Date: 10/13/22 07:00 Proposed Procedures p LEFT CARPAL TUNNEL RELEASE 61370 G56.0(Left) - Yi Montanez MD Related Problem List Diagnoses (1) Left carpal tunnel syndrome:
[2022-10-13] MEDS: ceFAZolin 2,000 MG in sodium chloride 0.9% (plus) 50 ML 100 MG IV (07:12)
[2022-10-13 08:17] VITALS: BP 202/87; PULSE 86; RESP 20; TEMP 36.2; O2SAT 94
[2022-10-13 08:22] VITALS: BP 107/74; PULSE 79; RESP 18; O2SAT 95
[2022-10-13 08:25] VITALS: BP 105/66; PULSE 75; RESP 18; O2SAT 95
--- NOTE | 2022-10-13 08:26 | P.OP_ITS ---
Operative Report Date of procedure: October 13, 2022 Pre-op diagnosis: Left carpal tunnel syndrome Post-op diagnosis: Left carpal tunnel syndrome Post-op findings: Severe compression across the carpal canal with significant compression and hourglass deformity to the median nerve Procedure done: Left carpal tunnel syndrome Specimens removed/disposition: None Surgeon: Yi Montanez Shuttlecock Feather Trimmer: None Anesthesia: MAC (With [place] block, ASA 3) Estimated blood loss (mL): 2 Tourniquet time (min): 46 (At 300 mmHg) IV fluids (mL): 200 Urine output (mL): 0 Complications: None Findings: Severe compression across the median nerve with discoloration and hourglass shape. Condition: stable Disposition: PACU (Then to same-day surgery for discharge home.) Brief History: This is a 42 year old female patient here today for carpal tunnel release to address her left wrist pain and associated carpal tunnel symptoms. She states her pain has been on going for years. She states her pain is a burning, numbness and tingling sensation. She explains her pain radiates from her elbow into her wrist, palm and fingers and involves primarily the thumb index and long fingers. She states she has numbness of all her digits of her left hand. She states she had a previous right carpal [place] [address] Al. She explains she has tried Ibuprofen, splinting and injections with no relief. She states her pain is worse at night and keeps her from sleeping. She reports difficulty holding coffee cups due to the pain and numbness. While in the office, risks and complications were discussed. Consents were signed, and questions were answered. Procedure: The patient was brought to the operating theater. The patient had a Saqib block with MAC, ASA 3. The tourniquet was elevated to 300 mmHg for a total tourniquet time of 46 minutes. The patient was also given Ancef 2 g preoperatively. The arm was then prepped and draped with DuraPrep in usual fashion with the arm draped free. A surgical pause was performed. At the time, the surgical pause, we confirmed the site and side of surgery. We also confirmed the patient's identity, appropriate and timely administration of preoperative antibiotics and preoperative surgical markings. An incision was then made along the thenar crease. The incision crossed the wrist joint in a curvilinear fashion. Dissection continued through skin and soft tissues using a scalpel. The palmaris longus was identified along with the transverse carpal ligament. Each of these was released carefully to avoid injury to the median nerve.? The transverse carpal ligament was significantly thickened.? We were able to dissect gently into the carpal canal which was noted to be quite tight with significant compression across the median nerve. The nerv e was visualized and was an hourglass shape with purplish discoloration. The canal was subsequently palpated to assure there was no bony encroachment upon the canal. There was a quite thickened fibrous tissue within the canal, and this was opened longitudinally as well. The canal was then palpated distally and proximally to assure that my small finger was passed easily without impingement. Finding this to be so, attention was directed to closure. The wound was irrigated with ropivacaine plain. It was then closed with 2-0 nylon in an interrupted mattress fashion. Sterile dressing was then placed consisting of Dermabond, OpSite, fluffed fluffs, sterile soft roll, and an Jose L wrap. The tourniquet was released after 46 minutes. There were no complications. There were no specimens. The procedure was well tolerated. Plan is the patient will be discharged home. Related Problem List Diagnoses (1) Left carpal tunnel syndrome:
[2022-10-13 08:30] VITALS: BP 117/78; PULSE 74; RESP 18; TEMP 36.3; O2SAT 95
[2022-10-13 08:33] VITALS: BP 106/77; PULSE 82; RESP 15; TEMP 36.6; O2SAT 97
--- NOTE | 2022-10-13 14:41 | ANE.PACU2 ---
Inpatient post-anesthesia follow up: Airway intact: Yes Vital signs: Temperature 97.8 F Pulse Rate 82 Respiratory Rate 15 Blood Pressure 106/77 Pulse Oximetry 97 Oxygen Delivery Me thod Room Air Oxygen Flow Rate Fraction of Inspir ed Oxygen Hydration adequate: Yes Nausea and vomiting: No Pain level: 1 Mental status: Baseline
== END 2022-10-13 09:00 | disposition home or self-care (01) ==
PROVIDERS: PCP Family Medicine; Visit Provider Specialist
PROC: (CPT 64721; principal; 2022-10-13 07:00)
DX: G56.02 Carpal tunnel syndrome, left upper limb (principal); K21.9 Gastro-esophageal reflux disease without esophagitis; E11.9 Type 2 diabetes mellitus without complications; E78.5 Hyperlipidemia, unspecified; F17.210 Nicotine dependence, cigarettes, uncomplicated
CPT/HCPCS: 64721; 36416; 82962; J0131; J0690; J2250; J2704; J3010; J3490; J7030

== ENCOUNTER → 2022-10-25 07:50 | Outpatient (BNVA) | payer MEDICARE, SELFPAY | PROVIDERS: PCP Family Medicine; Visit Provider Nurse Practitioner Family | DX: Z98.890 Other specified postprocedural states (principal) | CPT/HCPCS: 99024 ==

== ENCOUNTER → 2022-12-06 07:57 | Outpatient (BNVA) | payer MEDICARE, SELFPAY | PROVIDERS: PCP Family Medicine; Visit Provider Internal Medicine | DX: Z15.89 Genetic susceptibility to other disease (principal); M54.9 Dorsalgia, unspecified; G89.29 Other chronic pain; M79.643 Pain in unspecified hand; R79.82 Elevated C-reactive protein (CRP); Z88.2 Allergy status to sulfonamides | CPT/HCPCS: 99214 ==

== ENCOUNTER 2022-12-11 12:28 | Outpatient (CLI) | payer MEDICARE, SELFPAY ==
--- NOTE | 2022-12-11 12:59 | XRR_ITS ---
PROCEDURE INFORMATION: Exam: XR Left Elbow Exam date and time: 12/11/2022 1:02 PM Age: 42 years old Clinical indication: Pain; Elbow; Left; Additional info: M25.50 - pain in unspecified joint TECHNIQUE: Imaging protocol: Radiologic exam of the Left elbow. Views: 1 or 2 views. COMPARISON: CR XR wrist LT min 3V* [id number] 08/21/2022 8:05 AM FINDINGS: Bones/joints: Osseous structures are intact. Negative for fracture. Joint spaces are preserved. Soft tissues: Normal. XR/XR elbow LT 2V [id number] IMPRESSION: No acute findings.
--- NOTE | 2022-12-11 12:59 | XRR_ITS ---
PROCEDURE INFORMATION: Exam: XR Lumbosacral Spine Exam date and time: 12/11/2022 1:02 PM Age: 42 years old Clinical indication: Low back pain; Prior surgery; Surgery type: L spine fusion; Additional info: M25.50 - pain in unspecified joint TECHNIQUE: Imaging protocol: Radiologic exam of the lumbosacral spine. Views: 2 or 3 views. COMPARISON: CR XR lumbar spine 2-3V* [id number] 01/03/2021 11:29 AM FINDINGS: Bones/joints: Intact spinal fusion hardware noted at the L5-S1 level. There is grade 2 anterolisthesis of L5 on S1 with disc space narrowing/degenerative disc disease at this level. These findings are not significantly changed from prior study. Mild anterior wedging of L1, also unchanged. No acute fracture. Soft tissues: Unremarkable. XR/XR lumbar spine 2-3V* [id number] IMPRESSION: 1. No acute findings. 2. Intact spinal fusion hardware at L5-S1, with grade 2 anterolisthesis at this level, and corresponding degenerative disc disease.
--- NOTE | 2022-12-11 12:59 | XRR_ITS ---
PROCEDURE INFORMATION: Exam: XR Thoracic Spine Exam date and time: 12/11/2022 1:02 PM Age: 42 years old Clinical indication: Pain in thoracic spine; Additional info: M25.50 - pain in unspecified joint TECHNIQUE: Imaging protocol: Radiologic exam of the thoracic spine. Views: 3 views. COMPARISON: CR XR thoracic spine 3V* [id number] 01/03/2021 11:29 AM FINDINGS: Bones/joints: Straightening of the normal thoracic kyphosis. No acute fracture. No spinal malalignment. No significant degenerative changes of the thoracic spine. Soft tissues: Unremarkable. XR/XR thoracic spine 2V [id number] IMPRESSION: No acute findings.
[2022-12-11 15:22] LABS: Basophils % 0.3 %; Eosinophils # 0.2 10^3/uL (0.0-0.8); Eosinophils % 1.6 %; Hematocrit 42.1 % (37.0-47.0); Hemoglobin 13.3 g/dL (11.5-15.3); Lymphocytes # 3.4 10^3/uL (0.8-4.8); Lymphocytes % 35.1 %; Mean Corpuscular HGB Conc 31.6 g/dL (30.0-36.0); Mean Corpuscular Hemoglobin 30.4 pg (28.0-34.0); Mean Corpuscular Volume 96.1 fl (81-99); Mean Platelet Volume 11.6 fL (7.4-10.4); Monocytes # 0.4 10^3/uL (0.2-0.9); Monocytes % 4.4 %; Neutrophils % 58.1 %; Nucleated Red Blood Cells % 0 %; Platelet Count 289 10^3/cmm (130-400); Red Blood Count 4.38 10^6/uL (4.1-5.3); Red Cell Distribution Width 13.9 % (12.1-15.1); White Blood Count 9.6 10^3/uL (4.0-10.0)
[2022-12-11 15:43] LABS: Erythrocyte Sedimentation Rate 9 mm/hr (0-15)
[2022-12-11 15:45] LABS: Alanine Aminotransferase 30 U/L (0-33); Albumin Level 4.4 g/dL (3.5-5.2); Alkaline Phosphatase 85 U/L (35-105); Anion Gap 13.1 (5-19); Aspartate Amino Transferase 17 U/L (0-32); Blood Urea Nitrogen 6 mg/dL (6-20); C Reactive Protein 7.2 mg/L (0.0-4.9); Calcium 9.7 mg/dL (8.5-10.5); Carbon Dioxide 31 mmol/L (22-29); Chloride 99 mmol/L (98-107); Globulin 2.4 g/dL (1.3-4.6); Glomerular Filtration Rate 108.6 mL/min (90-130); Glucose 105 mg/dL (65-115); Osmolality Calculated 286 mOsm/kg (285-295); Potassium 4.1 mmol/L (3.5-5.1); Sodium 139 mmol/L (136-145); Thyroid Stimulating Hormone 2.29 uIU/mL (0.27-4.20); Total Bilirubin 0.2 mg/dL (0.15-1.2); Total Protein 6.8 g/dL (6.6-8.7)
[2022-12-11 15:51] LABS: Estmated Average Glucose 154
== END 2022-12-11 12:29 | disposition home or self-care (01) ==
PROVIDERS: PCP Family Medicine; Visit Provider Internal Medicine
DX: M25.50 Pain in unspecified joint (principal); G89.29 Other chronic pain; M54.9 Dorsalgia, unspecified; E11.42 Type 2 diabetes mellitus with diabetic polyneuropathy; Z98.1 Arthrodesis status
CPT/HCPCS: 17110; 36415; 72070; 72100; 73070; 80053; 83036; 84443; 85025; 85651; 86140

== ENCOUNTER → 2022-12-20 09:42 | Outpatient (BNVA) | payer MEDICARE, SELFPAY | PROVIDERS: PCP Family Medicine; Visit Provider Anesthesiology Pain Medicine | DX: G89.29 Other chronic pain (principal); M54.16 Radiculopathy, lumbar region; M96.1 Postlaminectomy syndrome, not elsewhere classified; M46.1 Sacroiliitis, not elsewhere classified; Z15.89 Genetic susceptibility to other disease; M43.10 Spondylolisthesis, site unspecified | CPT/HCPCS: 99214 ==

== ENCOUNTER 2023-01-16 15:22 | Outpatient (CLI) | payer MEDICARE, SELFPAY ==
--- NOTE | 2023-01-16 16:00 | MR_ITS ---
WS: [id number] MRI LUMBAR SPINE NONCONTRAST TECHNIQUE: Sagittal T1, T2 and STIR imaging. Axial T1 and T2 imaging. CLINICAL INFORMATION: M54.16 - Radiculopathy, lumbar region COMPARISON: MRI 2016 FINDINGS: Lumbar scoliosis convex LEFT. Chronic L5 spondylolysis with grade 2 anterolisthesis L5 on S1. Grade 2 anterolisthesis measures 12 m m appears stable compared to previous. Mild chronic anterior wedging at L1 is unchanged. No acute com pression fractures. Mild disc bulging worse L4-L5. Pedicle screw fixation L5-S1 with laminectomy defe cts.. Tarlov cysts in the sacrum. T12-L1: Mild disc bulging with slight effacement of ventral thecal sac. Mild LEFT foraminal narrowing . Mild facet arthropathy. L1-L2: No significant disc bulging. Spinal canal and foramen are patent. Mild facet arthropathy. L2-L3: No significant disc bulging. Mild facet arthropathy. Spinal canal and foramen are patent. L3-L4: Mild annular bulging. Moderate facet arthropathy. Spinal canal and foramen are patent. L4-L5: Mild disc bulging with slight effacement of the ventral thecal sac. Moderate LEFT and mild RIG HT foraminal narrowing. Spinal canal is patent. Slight narrowing of the LEFT subarticular recess. L5-S1: Stable grade 2 anterolisthesis L5 on S1. Chronic spondylolysis. Spinal canal is patent. Modera te RIGHT and mild LEFT L5-S1 bony foraminal narrowing. Visualized pelvic bony structures: Normal. Paravertebral soft tissues: Normal. MR/MR lumbar spine wo con* [id number] IMPRESSION: 1. Lumbar scoliosis convex LEFT. Chronic anterior wedging L1. No acute imelda laura fractures. 2. Grade 2 anterolisthesis L5 on S1 with chronic spondylolysis appears unchang ed. 3. Pedicle screw fixation L5-S1 with susceptibility artifact. 4. Mild disc bulging L4-L5. Moderate LEFT and mild RIGHT foraminal narrowing a ppears unchanged compared to previous. Narrowing of the LEFT subarticular reces s at this level. 5. Stable 12 mm anterolisthesis L5 on S1. Moderate RIGHT and mild LEFT bony fo raminal narrowing at this level appears unchanged. 6. Mild LEFT T12-L1 bony foraminal narrowing.
== END 2023-01-16 15:23 | disposition home or self-care (01) ==
LOC: RAD 15:25
PROVIDERS: PCP Family Medicine; Visit Provider Anesthesiology Pain Medicine
DX: M54.16 Radiculopathy, lumbar region (principal); M41.86 Other forms of scoliosis, lumbar region
CPT/HCPCS: 72148

== ENCOUNTER → 2023-01-22 13:37 | Outpatient (BNVA) | payer MEDICARE, SELFPAY | PROVIDERS: PCP Family Medicine; Visit Provider Podiatrist Foot & Ankle Surgery | DX: B07.9 Viral wart, unspecified (principal); B07.0 Plantar wart | CPT/HCPCS: 17110 ==

== ENCOUNTER → 2023-03-05 09:48 | Outpatient (BNVA) | payer MEDICARE, SELFPAY | PROVIDERS: PCP Family Medicine; Visit Provider Podiatrist Foot & Ankle Surgery | DX: B07.9 Viral wart, unspecified (principal); B07.0 Plantar wart | CPT/HCPCS: 11721; 17110 ==

== ENCOUNTER → 2023-03-20 09:01 | Outpatient (BNVA) | payer MEDICARE, SELFPAY | PROVIDERS: PCP Family Medicine; Visit Provider Anesthesiology Pain Medicine | DX: G89.29 Other chronic pain (principal); M54.16 Radiculopathy, lumbar region; M43.16 Spondylolisthesis, lumbar region; M96.1 Postlaminectomy syndrome, not elsewhere classified; M46.1 Sacroiliitis, not elsewhere classified; Z15.89 Genetic susceptibility to other disease | CPT/HCPCS: 99214 ==

== ENCOUNTER → 2023-04-02 09:58 | Outpatient (BNVA) | payer MEDICARE, SELFPAY | PROVIDERS: PCP Family Medicine; Visit Provider Podiatrist Foot & Ankle Surgery | DX: B07.9 Viral wart, unspecified (principal); B07.0 Plantar wart | CPT/HCPCS: 17110 ==

== ENCOUNTER → 2023-04-04 10:37 | Outpatient (BNVA) | payer MEDICARE, SELFPAY | PROVIDERS: PCP Family Medicine; Visit Provider Internal Medicine | DX: Z15.89 Genetic susceptibility to other disease (principal); E11.42 Type 2 diabetes mellitus with diabetic polyneuropathy; M79.671 Pain in right foot; M79.672 Pain in left foot; R79.82 Elevated C-reactive protein (CRP); M54.9 Dorsalgia, unspecified; G89.29 Other chronic pain | CPT/HCPCS: 36415; 80053; 83036; 84443; 85025; 85651; 86140; 99214 ==

== ENCOUNTER → 2023-06-05 12:39 | Outpatient (BNVA) | payer MEDICARE, SELFPAY | PROVIDERS: PCP Family Medicine; Visit Provider Podiatrist Foot & Ankle Surgery | DX: B07.9 Viral wart, unspecified (principal); B07.0 Plantar wart | CPT/HCPCS: 17110 ==

== ENCOUNTER → 2023-07-03 15:20 | Outpatient (BNVA) | payer MEDICARE, SELFPAY | PROVIDERS: PCP Family Medicine; Visit Provider Podiatrist Foot & Ankle Surgery | DX: B07.0 Plantar wart (principal) | CPT/HCPCS: 17110 ==

== ENCOUNTER → 2023-07-30 09:54 | Outpatient (BNVA) | payer MEDICARE, SELFPAY | PROVIDERS: PCP Family Medicine; Visit Provider Internal Medicine | DX: M79.643 Pain in unspecified hand (principal); Z15.89 Genetic susceptibility to other disease; R79.82 Elevated C-reactive protein (CRP); M54.9 Dorsalgia, unspecified; G89.29 Other chronic pain | CPT/HCPCS: 36415; 80053; 85025; 85651; 86140; 99214 ==

== ENCOUNTER → 2023-07-31 16:44 | Outpatient (BNVA) | payer MEDICARE, SELFPAY | PROVIDERS: PCP Family Medicine; Visit Provider Podiatrist Foot & Ankle Surgery | DX: B07.0 Plantar wart (principal) | CPT/HCPCS: 17110 ==

== ENCOUNTER → 2023-08-28 14:42 | Outpatient (BNVA) | payer MEDICARE, SELFPAY | PROVIDERS: PCP Family Medicine; Visit Provider Podiatrist Foot & Ankle Surgery | DX: B07.0 Plantar wart (principal) | CPT/HCPCS: 17110 ==

== ENCOUNTER → 2023-10-04 10:35 | Outpatient (BNVA) | payer MEDICARE, SELFPAY | PROVIDERS: PCP Family Medicine; Visit Provider Podiatrist Foot & Ankle Surgery | DX: B07.0 Plantar wart (principal) | CPT/HCPCS: 17110 ==

== ENCOUNTER → 2023-10-11 08:29 | Outpatient (BNVA) | payer MEDICARE, SELFPAY | PROVIDERS: PCP Family Medicine; Visit Provider Internal Medicine | DX: Z15.89 Genetic susceptibility to other disease (principal); M53.3 Sacrococcygeal disorders, not elsewhere classified; R79.82 Elevated C-reactive protein (CRP); M54.9 Dorsalgia, unspecified; G89.29 Other chronic pain | CPT/HCPCS: 36415; 80053; 85025; 99214 ==

== ENCOUNTER → 2023-12-10 12:37 | Outpatient (BNVA) | payer MEDICARE, SELFPAY | PROVIDERS: PCP Family Medicine; Visit Provider Podiatrist Foot & Ankle Surgery | DX: B07.0 Plantar wart (principal) | CPT/HCPCS: 17110 ==

== ENCOUNTER 2025-05-27 09:48 | Outpatient (CLI) | payer MEDICARE, SELFPAY ==
--- NOTE | 2025-05-27 09:55 | MM_ITS ---
WS: [id number] BILATERAL 3D TOMOSYNTHESIS DIGITAL SCREENING MAMMOGRAPHY WITH CAD CLINICAL INFORMATION: SCREENING HISTORY: Screening mammogram. No current complaints. COMPARISON: 2021 TECHNIQUE: Bilateral CC and MLO views. FINDINGS: The breasts are composed of heterogeneous fibroglandular density tissue, which can limit the detection of small underlying mass lesions. No suspicious mass, asymmetry, calcifications, or architectural distortion. No evidence of malignancy. Incidental benign calcifications MM/MM scr tomosynthesis [id number] IMPRESSION: DENSITY: The breasts are heterogeneously dense, which may obscure small masses. BI-RADS: 2 - Benign FOLLOW UP: 1 Year Follow-up Recommend return to annual screening mammography.
== END 2025-05-27 09:49 | disposition home or self-care (01) ==
LOC: RAD 09:49
PROVIDERS: PCP Family Medicine; Visit Provider Family Medicine
DX: Z12.31 Encounter for screening mammogram for malignant neoplasm of breast (principal); R92.333 Mammographic heterogeneous density, bilateral breasts; R92.323 Mammographic fibroglandular density, bilateral breasts; R92.1 Mammographic calcification found on diagnostic imaging of breast
CPT/HCPCS: 77063; 77067

== ENCOUNTER 2025-07-23 14:22 | Outpatient (CLI) | payer MEDICARE, SELFPAY | END 2025-07-23 14:23 | disposition home or self-care (01) | LOC: SLEEP 14:23 | PROVIDERS: PCP Family Medicine; Referring Provider Family Medicine; Visit Provider Internal Medicine Pulmonary Disease | DX: R06.83 Snoring (principal) | CPT/HCPCS: G0399 ==